=== PATIENT | female | born 1985 | race Caucasian/White ===

== ENCOUNTER 2019-07-27 16:00 | Emergency (ER) | payer OTHER ==
[~2019-07-27] VITALS: Ht 160 cm; Wt 94.2 kg
[~2019-07-27 16:00] MED LIST: ACET500C5 PO; GUAI-637 PO; HYDR-3498 PO
[2019-07-27 16:16] VITALS: Ht 160 cm; Wt 94.2 kg
[2019-07-27 17:33] VITALS: BP 120/70; PULSE 94; RESP 18
== END 2019-07-27 17:34 | disposition home or self-care (01) ==
LOC: FTE 16:00
DX: O99.511 Diseases of the respiratory system complicating pregnancy, first trimester (principal); J06.9 Acute upper respiratory infection, unspecified; Z3A.01 Less than 8 weeks gestation of pregnancy
CPT/HCPCS: 99282